=== PATIENT | female | born 1975 | race Caucasian/White ===

== ENCOUNTER 2020-07-13 15:17 | Outpatient (CLI) | payer OTHER ==
--- NOTE | 2020-07-20 15:23 | MMO ---
Bilateral MAMMO Bilat Screen [facility]. CLINICAL HISTORY: Patient is 45 years old and is seen for screening. The patient has the following family history of breast cancer: grandmother, at age 42, malignant (generic). The patient has no personal history of cancer. VIEWS: The views performed were: bilateral craniocaudal with tomosynthesis and bilateral mediolateral oblique with tomosynthesis. FILMS COMPARED: The present examination has been compared to prior imaging studies performed at [facility] on 04/22/2019, and at [facility] on 04/22/2019. This study has been interpreted with the assistance of computer-aided detection. MAMMOGRAM FINDINGS: The breasts are almost entirely fat. There are stable benign appearing calcifications seen in the right breast. There are no suspicious masses, suspicious calcifications, or new areas of architectural distortion. IMPRESSION: THERE IS NO MAMMOGRAPHIC EVIDENCE OF MALIGNANCY. A ROUTINE FOLLOW-UP MAMMOGRAM IN 1 YEAR IS RECOMMENDED. THE RESULTS OF THIS EXAM WERE SENT TO THE PATIENT. ACR BI-RADS Category 2 - Benign finding MAMMOGRAPHY NOTE: 1. A negative mammogram report should not delay a biopsy if a dominant of clinically suspicious mass is present. 2. Approximately 10% to 15% of breast cancers are not detected by mammography. 3. Adenosis and dense breasts may obscure an underlying neoplasm. Reported by: ROSEMARY DDOSON MD Electonically Signed: [id number]
== END 2020-07-13 15:18 | disposition home or self-care (01) ==
LOC: BICMAMMO 15:17
PROVIDERS: ATTEND Physician Assistant
DX: Z12.31 Encounter for screening mammogram for malignant neoplasm of breast (principal); Z80.3 Family history of malignant neoplasm of breast
CPT/HCPCS: 77063; 77067

== ENCOUNTER 2021-07-22 13:27 | Outpatient (CLI) | payer BC | END 2021-07-22 13:28 | disposition home or self-care (01) | LOC: ULT 13:27 | PROVIDERS: ATTEND Nurse Practitioner Acute Care | DX: M79.605 Pain in left leg (principal); R60.0 Localized edema ==

== ENCOUNTER 2021-12-13 08:01 | Outpatient (CLI) | payer BC | END 2021-12-13 08:02 | disposition home or self-care (01) | LOC: BICMRI 08:01 | PROVIDERS: ATTEND Family Medicine | DX: M47.26 Other spondylosis with radiculopathy, lumbar region (principal); M47.27 Other spondylosis with radiculopathy, lumbosacral region | CPT/HCPCS: 72148 ==

== ENCOUNTER 2021-12-17 15:47 | Outpatient (CLI) | payer BC | END 2021-12-17 15:48 | disposition home or self-care (01) | LOC: BICRAD 15:47 | PROVIDERS: ATTEND Neurological Surgery | DX: M54.50 Low back pain, unspecified (principal); M47.816 Spondylosis without myelopathy or radiculopathy, lumbar region | CPT/HCPCS: 72110 ==

== ENCOUNTER 2021-12-27 13:00 | Outpatient (CLI) | payer BC | END 2021-12-27 13:01 | disposition home or self-care (01) | LOC: BICRAD 13:00 | PROVIDERS: ATTEND Nurse Practitioner Family | DX: M47.812 Spondylosis without myelopathy or radiculopathy, cervical region (principal) | CPT/HCPCS: 72050 ==

== ENCOUNTER 2022-07-18 12:37 | Outpatient (CLI) | payer BC | END 2022-07-18 12:38 | disposition home or self-care (01) | LOC: BICMAMMO 12:37 | PROVIDERS: ATTEND Family Medicine | DX: Z12.31 Encounter for screening mammogram for malignant neoplasm of breast (principal); Z80.3 Family history of malignant neoplasm of breast | CPT/HCPCS: 77063; 77067 ==

== ENCOUNTER 2023-04-28 14:58 | Emergency (ER) | payer BC ==
[2023-04-28 16:40] LABS: Pregnancy Test - Urine (BHCG) Negative (Negative); Pregu Control Background? CLEAR/WHITE (CLR/WHITE); Pregu Control Bar Appear? YES (CONTROL BAR); Specific Gravity 1.005 (1.002-1.036)
[2023-04-28] MEDS ORDERED: Magnesium 2 GM/50 ML BAG (IN WATER) ONE (17:11)
[2023-04-28] MEDS ORDERED: Ketorolac Tromethamine 30 MG/ML VIAL ONE (17:11)
[2023-04-28] MEDS ORDERED: diphenhydrAMINE 50 MG/ML VIAL ONE (17:11)
[2023-04-28] MEDS ORDERED: Prochlorperazine 10 MG/2 ML VIAL ONE (17:11)
== END 2023-04-28 18:25 | disposition home or self-care (01) ==
LOC: ERS 14:58
DX: G43.909 Migraine, unspecified, not intractable, without status migrainosus (principal); Z79.899 Other long term (current) drug therapy
CPT/HCPCS: 81025; 96365; 96375; J0780; J1200; J1885; J3475

== ENCOUNTER 2023-07-23 16:00 | Outpatient (CLI) | payer BC | END 2023-07-23 16:01 | disposition home or self-care (01) | LOC: SLEEPLAB 16:00 | PROVIDERS: ATTEND Family Medicine | DX: G47.33 Obstructive sleep apnea (adult) (pediatric) (principal); R53.83 Other fatigue; E66.9 Obesity, unspecified; G47.00 Insomnia, unspecified; J45.909 Unspecified asthma, uncomplicated; E78.5 Hyperlipidemia, unspecified; F41.8 Other specified anxiety disorders; G43.909 Migraine, unspecified, not intractable, without status migrainosus; Z68.37 Body mass index [BMI] 37.0-37.9, adult | CPT/HCPCS: 95800 ==

== ENCOUNTER 2023-08-21 12:40 | Outpatient (CLI) | payer BC | END 2023-08-21 12:41 | disposition home or self-care (01) | LOC: BICMAMMO 12:40 | PROVIDERS: ATTEND Family Medicine | DX: Z12.31 Encounter for screening mammogram for malignant neoplasm of breast (principal); Z80.3 Family history of malignant neoplasm of breast | CPT/HCPCS: 77063; 77067 ==

== ENCOUNTER 2023-11-27 13:18 | Outpatient (CLI) | payer BC | END 2023-11-27 13:19 | disposition home or self-care (01) | LOC: BICRAD 13:18 | PROVIDERS: ATTEND Family Medicine | DX: M25.512 Pain in left shoulder (principal); M19.012 Primary osteoarthritis, left shoulder ==

== ENCOUNTER 2024-01-01 13:20 | Outpatient (CLI) | payer BC | END 2024-01-01 13:21 | disposition home or self-care (01) | LOC: SCSMRI 13:20 | PROVIDERS: ATTEND Orthopaedic Surgery | DX: S46.012A Strain of muscle(s) and tendon(s) of the rotator cuff of left shoulder, initial encounter (principal) ==

== ENCOUNTER 2024-02-04 06:41 | Day surgery (SDC) | payer BC ==
[2024-01-28 13:08] VITALS: BMI 37.8
[2024-02-04] MEDS ORDERED: Bupivacaine PF 0.5% 30 ML VIAL ONE ×2 (07:55→09:16)
[2024-02-04] MEDS ORDERED: EPINEPHrine 1 MG/ML VIAL ONE ×2 (07:55→08:31)
[2024-02-04] MEDS ORDERED: fentaNYL 50 mcg/mL 1 mL Vial ONE ×2 (07:55→08:04)
[2024-02-04] MEDS ORDERED: Midazolam HCl 2 mg/2 ml Vial ONE (07:55)
[2024-02-04] MEDS ORDERED: Lidocaine 1% (PF) 30 ML VIAL ONE ×2 (07:55→08:32)
[2024-02-04] MEDS ORDERED: Sodium Chloride 0.9% 100 ML ONE (08:03)
[2024-02-04] MEDS ORDERED: CEFAZOLIN 2 GM VIAL ONE (08:03)
[2024-02-04] MEDS ORDERED: Dexamethasone 4 mg/ml Vial ONE (08:04)
[2024-02-04] MEDS ORDERED: PROPOFOL 20 ML ONE (08:04)
[2024-02-04] MEDS ORDERED: Rocuronium Bromide 10 MG/ML (10ML VIAL) ONE (08:04)
[2024-02-04] MEDS ORDERED: Ondansetron PF 4 MG/2 ML Vial ONE ×2 (08:04→11:01)
[2024-02-04] MEDS ORDERED: Lidocaine 1% PF 5 ML VIAL ONE (08:04)
[2024-02-04] MEDS ORDERED: Ondansetron PF 4 MG/2 ML Vial IVP PRN (10:00)
[2024-02-04] MEDS ORDERED: Promethazine HCl 25 MG/ML VIAL IM PRN (10:00)
[2024-02-04] MEDS ORDERED: Ropivacaine 0.2% 550 ML 550 ML NERVE BLCK SCH (10:00)
[2024-02-04] MEDS ORDERED: Zolpidem Tartrate 5 MG TAB PO PRN (10:00)
[2024-02-04] MEDS ORDERED: SUGAMMADEX SODIUM 200 MG/2 ML VIAL ONE (10:06)
[2024-02-04] MEDS ORDERED: Ketorolac Tromethamine 30 MG (1 mL) VIAL IVP SCH (12:00)
== END 2024-02-04 13:25 | disposition home or self-care (01) ==
LOC: SDC 06:41
PROVIDERS: ATTEND Orthopaedic Surgery
PROC: 0LS40ZZ Reposition Left Upper Arm Tendon, Open Approach (ICD-10-PCS; principal; 2024-02-04)
DX: S46.012A Strain of muscle(s) and tendon(s) of the rotator cuff of left shoulder, initial encounter (principal); I10 Essential (primary) hypertension; J45.909 Unspecified asthma, uncomplicated; Z88.0 Allergy status to penicillin; Z88.2 Allergy status to sulfonamides; Z79.899 Other long term (current) drug therapy; Z91.048 Other nonmedicinal substance allergy status; X58.XXXA Exposure to other specified factors, initial encounter
CPT/HCPCS: A4306; C1713; J0171; J0665; J1100; J2001; J2250; J2405; J2704; J2795; J3010